=== PATIENT | female | born 1990 | race Caucasian/White ===

== ENCOUNTER 2021-10-06 13:01 | Emergency (ER) | payer MEDICAID ==
[~2021-10-06] VITALS: Ht 154.9 cm; Wt 61.8 kg
[2021-10-06 13:08] VITALS: BP 132/103
--- NOTE | 2021-10-06 13:23 | NUR ---
AFTER TRIAGE THIS POULTRY FARMER MEAT ESCORTED THE PT TO THE BATHROOM TO COLLECT A URINE SAMPLE. PT THEN STATED SHE COULD DO IT HERSELF SO THIS POULTRY FARMER MEAT STEPPED OUT TO ALLOW PT TO PROVIDE SAMPLE. PT THEN PULLED THE CORD IN THE BATHROOM TO SIGNAL SHE WAS DONE. THIS POULTRY FARMER MEAT HELPED TAKE PT OUT OF BATHROOM IN WHEELCHAIR WHERE PT ASKED HOW LONG THE WAIT WAS. INFORMED PT THAT PTS ARE CURRENTLY WAITING UP TO 3.5 HOURS FOR A BED ALTHOUGH PEOPLE WAIT DIFFERENT TIMES DUE TO DIFFERENT REASONS THEY ARE HERE. PT REPLIED " I NEED A BED. I'M GOING TO . I CANT HANDLE THIS PAIN." MANAGER LIFE VERNON PRESENT AND ALSO SPOKE WITH PT. PT THEN TAKEN NEXT DOOR TO GET ORDERED LABS DRAWN WHERE PT BEGAN YELLING "NO FUCK THIS I'M GOING TO [facility] ASS[facility]. I'M GONNA IN THIS HOSPITAL. THEY DONT HAVE A BED FOR ME. I'M LEAVING AND GOING TO ANOTHER HOSPITAL. I'LL HERE. I'M SUEING YOU." PT THEN RE[facility]. [facility] WHERE HER FRIEND TOOK HER TO THEIR VEHICLE AND LEFT.
== END 2021-10-06 17:21 | disposition left against medical advice (07) ==
LOC: ER 13:02
DX: R10.9 Unspecified abdominal pain (principal); Z53.21 Procedure and treatment not carried out due to patient leaving prior to being seen by health care provider